=== PATIENT | male | born 1955 | race Caucasian/White ===

== ENCOUNTER → 2024-06-15 09:22 | Outpatient (REF) | payer MEDICARE, SELFPAY | LOC: HWRAD 09:22 | PROVIDERS: ATTENDING PHYSICIAN Family Medicine | DX: R91.1 Solitary pulmonary nodule (principal) | CPT/HCPCS: 71250 ==

== ENCOUNTER → 2024-06-19 08:00 | Outpatient (REF) | payer MEDICARE, SELFPAY | LOC: HWRAD 08:00 | PROVIDERS: ATTENDING PHYSICIAN Family Medicine | DX: R60.9 Edema, unspecified (principal) | CPT/HCPCS: 76536 ==

== ENCOUNTER → 2025-02-09 06:42 | Outpatient (REF) | payer MEDICARE, SELFPAY | LOC: PAVMRI 06:42 | PROVIDERS: ATTENDING PHYSICIAN Specialist; FAMILY PHYSICIAN Family Medicine | DX: M25.552 Pain in left hip (principal); M54.16 Radiculopathy, lumbar region | CPT/HCPCS: 72148; 73721 ==